=== PATIENT | male | born 1935 | race Caucasian/White ===

== ENCOUNTER 2017-05-02 16:32 | Inpatient (IN) | payer MEDICARE, BC ==
[2017-05-02] MEDS ORDERED: Sodium Chloride 0.9% 10 ML Syringe FLUSH PRN (17:03)
[2017-05-02] MEDS ORDERED: Sodium Chloride 0.9% 250 ML IV ONE ×2 (17:32→18:46)
--- NOTE | 2017-05-02 17:42 | EDM.PDOC ---
ED HPI GENERAL MEDICAL PROBLEM - General Chief Complaint: Neurological Problem Stated Complaint: Weakness Time Seen by Provider: 05/02/17 16:40 Source of Information: Reports: Patient, RN Notes Reviewed History Limitations: Reports: No Limitations - History of Present Illness INITIAL COMMENTS - FREE TEXT/NARRATIVE: 82 year old male presents to the ED via [facility] with complaints of generalized weakness. He lives with his son and mzfgpxro-dl-rpw who care for him. He has a history of prostate cancer with mets to the bones and is on oral chemotherapy. The svrbegof-sx-vxv says that the patient had a sudden decline over the past 24 hours. Yesterday he was ambulating with his walker with minimal assistance. This morning, he was very weak and had a minor fall onto his buttocks this morning when up to the bathroom. The patient essentially slowly fell and sat on his buttocks. He's had no complaints of pain since the fall. He was able to bear weight after the fall. Today he is unable to ambulate due to significant weakness. The hubfppyf-ss-nzx says that he had no facial droop or speech changes. He had no unilateral weakness to his extremities. He has been eating well the past few days. No fever, chills, sweats, cough, chest pain, shortness of breath, abdominal pain, nausea, vomiting. He does have intermittent diarrhea which has been going on for quite some time and seems to be related to certain foods. - Related Data Allergies Allergy/AdvReac Type Severity Reaction Status Date / Time No Known Allergies Allergy Verified 09/16/16 23:13 Home Meds: Home Meds Calcium Carbonate/Vitamin D3 [Calcium 600 + D Tablet] 1,250 mg PO TID 05/07/15 [ History] Cholecalciferol (Vitamin D3) [Vitamin D3] 5,000 unit PO DAILY 05/07/15 [History] Fluticasone/Vilanterol [Breo Ellipta 200-25 Mcg INH] 1 puff INH DAILY 05/07/15 [ History] Tamsulosin HCl [Flomax] 0.4 mg PO DAILY #30 cap.er.24h 05/09/15 [Rx] Albuterol Sulfate 2.5 mg INH TID 06/09/16 [History] Enzalutamide [Xtandi] 160 mg PO QID 09/16/16 [History] Warfarin [Coumadin] 5 mg PO DAILY 09/16/16 [History] Furosemide [Lasix] 20 mg PO DAILY #30 tablet 09/20/16 [Rx] Albuterol Sulfate [Proair Hfa] 8.5 gm IH Q4H 05/02/17 [History] Digoxin [Lanoxin] 0.125 mcg PO DAILY@0900 05/02/17 [History] Mirtazapine 7.5 mg PO BEDTIME 05/02/17 [History] oxyCODONE 5 mg PO Q4H PRN 05/02/17 [History] Past Medical History HEENT History: Reports: Hard of Hearing, Impaired Vision Other HEENT History: wears eyeglasses and hearing aids Cardiovascular History: Reports: Afib, Automatic Implantable Cardioverter Defibrillators, Heart Failure, Hypertension Other Cardiovascular History: AICD Respiratory History: Reports: COPD Other Respiratory History: states had part of R lung removed due to cancer in 2005. Other Genitourinary History: recently Dx'd with prostate CA Immunologic History: Reports: Other (See Below) Other Immunologic History: on CHEMOTHERAPY Oncologic (Cancer) History: Reports: Bone, Lung, Prostate Other Oncologic History: lung cancer s/p lobectomy 2005. and new lung cancer also stage 1, just started radiation radiation. 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 - Infectious Disease History Infectious Disease History: Reports: Chicken Pox - Past Surgical History GI Surgical History: Reports: None Social & Family History - Family History Family Medical History: Noncontributory - Tobacco Use Smoking Status *Q: Former Smoker Years of Tobacco use: 40 Packs/Tins Daily: 0.1 Used Tobacco, but Quit: Yes Month Tobacco Last Used: 20 Second Hand Smoke Exposure: No - Caffeine Use Caffeine Use: Reports: None Other Caffeine Use: every morning - Alcohol Use Days Per Week of Alcohol Use: 5 Number of Drinks Per Day: 1 Total Drinks Per Week: 5 - Recreational Drug Use Recreational Drug Use: No - Living Situation & Occupation Living situation: Reports: , Alone ED ROS GENERAL - Review of Systems Review Of Systems: See Below Constitutional: Reports: Malaise, Fatigue. Denies: Fever, Chills Respiratory: Reports: No Symptoms. Denies: Shortness of Breath, Wheezing, Cough Cardiovascular: Reports: No Symptoms. Denies: Chest Pain, Edema, Lightheadedness GI/Abdominal: Reports: Diarrhea. Denies: Abdominal Pain, Nausea, Vomiting Neurological: Reports: Difficulty Walking, Weakness. Denies: Headache, Numbness , Tingling ED EXAM, NEURO - Physical Exam Exam: See Below Exam Limited By: No Limitations General Appearance: Alert, No Apparent Distress, Thin, Cachetic Eye Exam: Bilateral Eye: EOMI, PERRL Throat/Mouth: Normal Inspection, Normal Oropharynx Respiratory/Chest: No Respiratory Distress, Lungs Clear, Decreased Breath Sounds (left side ) Cardiovascular: Normal Peripheral Pulses, Regular Rate, Rhythm, No Murmur GI/Abdominal: Normal Bowel Sounds, Soft, Non-Tender, No Distention Neurological: Alert, Normal Mood/Affect, Normal Dorsiflexion, Normal Plantar Flexion, Normal Gait, Difficulty Walking, Other (no focal neuro deficit. weakness to upper and lower extremities are equal bilaterally. ) Extremities: Normal Inspection, Normal Range of Motion, No Pedal Edema Skin Exam: Warm, Dry, Intact Course - Vital Signs Last Recorded V/S: Last Vital Signs Temp 98 F 05/02/17 16:37 Pulse 100 05/02/17 16:37 Resp 15 05/02/17 18:30 BP 95/63 05/02/17 18:30 Pulse Ox 98 05/02/17 18:30 - Orders/Labs/Meds Orders: Active Orders 24 hr Category Date Time Status Insert Urinary Catheter [OM.PC] Q24H Care 05/02/17 18:15 Ordered Peripheral IV Care [RC] . DIRECTED Care 05/02/17 17:04 Active Urinary Catheter Assessment [RC] ASDIRECTED Care 05/02/17 18:09 Active CXR [Chest 1V Frontal] [CR] Stat Exams 05/02/17 17:37 Taken Sodium Chloride 0.9% [Saline Flush] Med 05/02/17 17:03 Active 10 ml FLUSH ASDIRECTED PRN Peripheral IV Insertion Adult [OM.PC] Stat Oth 05/02/17 17:04 Ordered Medication Orders Sodium Chloride (Saline Flush) 10 ml FLUSH ASDIRECTED PRN PRN Reason: Keep Vein Open Last Admin: 05/02/17 17:57 Dose: 10 ml Labs: Laboratory Tests 05/02/17 05/02/17 05/02/17 Range/Units 17:30 17:30 18:20 WBC 2.22 L* (4.23-9.07) K/mm3 RBC 2.89 L (4.63-6.08) M/mm3 Hgb 9.4 L (13.7-17.5) gm/L Hct 27.9 L (40.1-51.0) % MCV 96.5 H (79.0-92.2) fl MCH 32.5 H (25.7-32.2) pg MCHC 33.7 (32.2-35.5) g/dl RDW Std Deviation 58.5 H (35.1-43.9) fL Plt Count 50 L (163-337) K/mm3 MPV 9.2 L (9.4-12.3) fl Neut % (Auto) 65.1 (34.0-67.9) % Lymph % (Auto) 19.4 L (21.8-53.1) % [place] % (Auto) 10.4 (5.3-12.2) % Eos % (Auto) 2.3 (0.8-7.0) Baso % (Auto) 1.4 H (0.1-1.2) % Neut # (Auto) 1.45 L (1.78-5.38) K/mm3 Lymph # (Auto) 0.43 L (1.32-3.57) K/mm3 [place] # (Auto) 0.23 L (0.30-0.82) K/mm3 Eos # (Auto) 0.05 (0.04-0.54) K/mm3 Baso # (Auto) 0.03 (0.01-0.08) K/mm3 Manual Slide Review Abnormal smear Sodium 140 (136-145) mEq/L Potassium 3.9 (3.5-5.1) mEq/L Chloride 108 H (98-107) mEq/L Carbon Dioxide 26 (21-32) mEq/L Anion Gap 9.9 (5-15) BUN 42 H (7-18) mg/dL Creatinine 1.5 H (0.7-1.3) mg/dL Est Cr Clr Drug Dosing 27.28 mL/min Estimated GFR (MDRD) 45 (>60) mL/min BUN/Creatinine Ratio 28.0 H (14-18) Glucose 94 (83-115) mg/dL Calcium 8.3 L (8.5-10.1) mg/dL Total Bilirubin 0.6 (0.2-1.0) mg/dL AST 132 H (15-37) U/L ALT 16 (16-63) U/L Alkaline Phosphatase 132 H (46-116) U/L C-Reactive Protein 7.6 H* (<1.0) mg/dL Total Protein 5.6 L (6.4-8.2) g/dl Albumin 2.2 L (3.4-5.0) g/dl Globulin 3.4 gm/dL Albumin/Globulin Ratio 0.7 L (1-2) Urine Color Yellow (Yellow) Urine Appearance Clear (Clear) Urine pH 5.5 (5.0-8.0) Ur Specific [place] 1.020 (1.005-1.030) Urine Protein Negative (Negative) Urine Glucose (UA) Negative (Negative) Urine Ketones Negative (Negative) Urine Occult Blood Negative (Negative) Urine Nitrite Negative (Negative) Urine Bilirubin Negative (Negative) Urine Urobilinogen 0.2 (0.2-1.0) Ur Leukocyte Esterase Negative (Negative) Urine RBC 0-5 (0-5) /hpf Urine WBC 0-5 (0-5) /hpf Ur Epithelial Cells 0-5 (0-5) /hpf Urine Bacteria Few (FEW) /hpf Urine Mucus Moderate H (FEW) /hpf Meds: Medications Generic Name Dose Route Start Last Admin Trade Name Freq PRN Reason Stop Dose Admin Sodium Chloride 10 ml 05/02/17 17:03 05/02/17 17:57 Saline Flush FLUSH 10 ml ASDIRECTED PRN Administration Keep Vein Open Discontinued Medications Generic Name Dose Route Start Last Admin Trade Name Fredipti PRN Reason Stop Dose Admin Sodium Chloride 250 mls @ 999 mls/hr 05/02/17 17:32 05/02/17 17:57 Normal Saline IV 05/02/17 17:47 999 mls/hr ONETIME ONE Administration Sodium Chloride 250 mls @ 999 mls/hr 05/02/17 18:46 05/02/17 18:48 Normal Saline IV 05/02/17 19:01 999 mls/hr ONETIME ONE Administration - Re-Assessments/Exams Free Text/Narrative Re-Assessment/Exam: Patient had no focal neurologic deficit on exam. We discussed risk versus benefit of CT. With shared decision making we decided not to proceed with head CT. Oxygen was titrated around 4-6 lpm to maintain oxygen saturation above 90%. He was hypotensive in the 80s/40s upon arrival. This improved with two 250ml NS boluses. CBC reveals low WBC and platelets which is to be suspected as he is on chemotherapy. CMP reveals Na 140, K 3.9, BUN 42, creatinine 1.5, AST 132, ALT 16 , alk phos 132. CRP is elevated at 7.6. UA obtained via straight cath and is negative for infection. Chest x-ray was reviewed with Dr. Li. There is an area of consolidation in the right upper lobe, it's difficult to determine if this is related to mets or an infiltrate. No pneumothorax appreciated. We considered ordered CT of chest and consulted Dr. Salinas who also reviewed the chest x-ray. He compared this with a previous chest CT and said there is no change from previous testing. Therefore, CT was no ordered. 05/02/17 19:[address] Michael. He will come see the patient. 05/02/17 20:45 Dr. Michael spoke to the patient and his iuuaorde-hd-bjh in depth about options. The family talked over various options and would prefer that he be admitted until they can get better equipped to care for him at home. They are planning to obtain a hospital type bed and other supplies to help care for him at home as his condition declines. The patient adamantly does not want to go to the half-way. Family is aware of this and plan to care for him at home. They have home health and have the option of hospice if they decide. The patient will be admitted for failure to thrive. Plan will be to get social work and case management involved in the morning to help coordinate home care. I did ask the patient about his code status and at this time he wishes to be a DNR/DNI. Departure - Departure Time of Disposition: 20:58 Disposition: Admitted As Inpatient 66 Condition: Poor Clinical Impression: Failure to thrive, Prostate cancer metastatic to bone - Discharge Information Forms: ED Department Discharge - My Orders Last 24 Hours: My Active Orders 05/02/17 17:03 Sodium Chloride 0.9% [Saline Flush] 10 ml FLUSH ASDIRECTED PRN 05/02/17 17:04 Peripheral IV Care [RC] . DIRECTED Peripheral IV Insertion Adult [OM.PC] Stat 05/02/17 17:37 CXR [Chest 1V Frontal] [CR] Stat 05/02/17 18:09 Urinary Catheter Assessment [RC] ASDIRECTED 05/02/17 18:15 Insert Urinary Catheter [OM.PC] Q24H - Assessment/Plan Last 24 Hours: My Active Orders 05/02/17 17:03 Sodium Chloride 0.9% [Saline Flush] 10 ml FLUSH ASDIRECTED PRN 05/02/17 17:04 Peripheral IV Care [RC] . DIRECTED Peripheral IV Insertion Adult [OM.PC] Stat 05/02/17 17:37 CXR [Chest 1V Frontal] [CR] Stat 05/02/17 18:09 Urinary Catheter Assessment [RC] ASDIRECTED 05/02/17 18:15 Insert Urinary Catheter [OM.PC] Q24H
[2017-05-02] MEDS ORDERED: Temazepam 7.5 MG Cap PO PRN (21:51)
[2017-05-02] MEDS ORDERED: Bisacodyl 5 MG Tab PO PRN (21:51)
[2017-05-02] MEDS ORDERED: Albuterol/Ipratropium 3.0-0.5 MG/3 ML Neb Soln NEB PRN (21:51)
[2017-05-02] MEDS ORDERED: Ondansetron 4 MG/2 ML SDV IV PRN (21:51)
[2017-05-02] MEDS ORDERED: Promethazine 12.5 MG in Sodium Chloride 0.9% 50 ML IV PRN (21:51)
[2017-05-02] MEDS ORDERED: HYDROmorphone 0.5 MG/0.5 ML Syringe IVPUSH PRN (21:51)
[2017-05-02] MEDS ORDERED: LORazepam 2 MG/ML MDV IV PRN (21:51)
[2017-05-02] MEDS ORDERED: Docusate Sodium 100 MG Cap PO PRN (21:51)
[2017-05-02] MEDS ORDERED: Acetaminophen 325 MG Tab PO PRN (21:51)
[2017-05-02] MEDS ORDERED: Acetaminophen/HYDROcodone 325-5 MG Tab PO PRN (21:51)
[2017-05-02] MEDS ORDERED: Polyethylene Glycol 3350 Powder 17 GM Packet PO PRN (21:51)
--- NOTE | 2017-05-02 21:51 | PCM.HP ---
H&P History of Present Illness - General Date of Service: 05/02/17 Admit Problem/Dx: Failure To Thrive Source of Information: Patient, Family, Old Records, Provider, RN Notes Reviewed History Limitations: Reports: Physical Impairment - History of Present Illness Initial Comments - Free Text/Narative: This is an 82 year old elderly white male with past medical hx/o Impaired Hearing and Vision, HTN, A-Fib on Digoxi, HR is controlled, Heart Failure with Reduced EF of 15-20% 09/17/2016, Cardiomyopathy S/p AICD Placement, COPD, Valvular Heart Disease, Hx/o Lung CA S/p Right Lung Lobectomy in 2005 and now New Lung CA S/p Radiation, and Stage IV Prostate CA with Metastatic Bone Disease who Savage since her via ambulance from [place] with complains of progressive generalized weakness associated with poor oral intake. Patient is usually able to ambulate on his own using a walker with minimal assistance. However this morning he was very weak and had fallen when he went up to the bathroom. The fall was nontraumatic and the patient landed on his buttocks. He reports no pain after the fall. However he has not been able to ambulate due to severe weakness. Patient reports no neurologic deficits. Patient denies any systemic infections. However he reports some diarrhea on and off that has been going on quite some time. According to his jrvbjiqx-jj-qoh who was present at bedside, patient is afraid to eat due to constipation. Patient carries a history of lung cancer status post right lung lobectomy in 2005 and it appears he may have developed new lung cancer unclear which side of his lungs at this time. He had undergone radiation therapy and he is currently on oral chemotherapy. He also carries a history of stage IV prostate cancer with metastatic bone disease. His initial workup in emergency department shows a CBC remarkable for WBC of 2.22, RBC of 2.89, hemoglobin of 9.4, hematocrit of 27.9, MCV of 96.5, MCH of 32.5, platelet 50, lymphocyte of 19.4%, and neutrophils count of 1.45. PT is 19.7 and INR is 1.74. His chemistry is significant for chloride of 108, BUN of 42, creatinine of 1.5, calcium 8.2, AST of 132, alkaline phosphatase of 132, CRP of 7.6, total protein of 5.6, and albumin of 2.2. His UA is negative for UTI but specific gravity shows 1.020. Chest x-ray shows no acute abnormal findings. Patient is being admitted for failure to thrive. He is DNR/DNI. - Related Data Allergies/Adverse Reactions: Allergies Allergy/AdvReac Type Severity Reaction Status Date / Time No Known Allergies Allergy Verified 09/16/16 23:13 Home Medications: Home Meds Calcium Carbonate/Vitamin D3 [Calcium 600 + D Tablet] 1 tab PO TID 05/07/15 [ History] Cholecalciferol (Vitamin D3) [Vitamin D3] 1,000 unit PO DAILY 05/07/15 [History] Fluticasone/Vilanterol [Breo Ellipta 200-25 Mcg INH] 1 puff INH DAILY 05/07/15 [ History] Tamsulosin HCl [Flomax] 0.4 mg PO DAILY #30 cap.er.24h 05/09/15 [Rx] Albuterol Sulfate 2.5 mg INH TID 06/09/16 [History] Enzalutamide [Xtandi] 160 mg PO ACLUNCH 09/16/16 [History] Warfarin [Coumadin] 5 mg PO PCDINNER 09/16/16 [History] Furosemide [Lasix] 20 mg PO DAILY #30 tablet 09/20/16 [Rx] Albuterol Sulfate [Proair Hfa] 8.5 gm IH Q4H PRN 05/02/17 [History] Digoxin [Lanoxin] 125 mcg PO DAILY@0900 05/02/17 [History] oxyCODONE 5 mg PO Q4H PRN 05/02/17 [History] Dronabinol [Marinol] 2.5 mg PO TIDAC #90 cap 05/03/17 [Rx] Mirtazapine 15 mg PO BEDTIME PRN #30 05/03/17 [Rx] Past Medical History HEENT History: Reports: Hard of Hearing, Impaired Vision Other HEENT History: wears eyeglasses and hearing aids Cardiovascular History: Reports: Afib, Automatic Implantable Cardioverter Defibrillators, Heart Failure, Hypertension Other Cardiovascular History: AICD Respiratory History: Reports: COPD Other Respiratory History: states had part of R lung removed due to cancer in 2005. Other Genitourinary History: recently Dx'd with prostate CA Immunologic History: Reports: Other (See Below) Other Immunologic History: on CHEMOTHERAPY Oncologic (Cancer) History: Reports: Bone, Lung, Prostate Other Oncologic History: lung cancer s/p lobectomy 2006. and new lung cancer also stage 1, just started radiation radiation. 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 - Infectious Disease History Infectious Disease History: Reports: Chicken Pox - Past Surgical History GI Surgical History: Reports: None Social & Family History - Family History Family Medical History: Noncontributory - Tobacco Use Smoking Status *Q: Former Smoker Years of Tobacco use: 40 Packs/Tins Daily: 0.1 Used Tobacco, but Quit: Yes Month Tobacco Last Used: 20 Second Hand Smoke Exposure: No - Caffeine Use Caffeine Use: Reports: None Other Caffeine Use: every morning - Alcohol Use Days Per Week of Alcohol Use: 5 Number of Drinks Per Day: 1 Total Drinks Per Week: 5 - Recreational Drug Use Recreational Drug Use: No - Living Situation & Occupation Living situation: Reports: , Alone H&P Review of Systems - Review of Systems: Review Of Systems: See Below General: Reports: Malaise, Weakness, Fatigue. Denies: Fever, Chills HEENT: Reports: No Symptoms Pulmonary: Denies: Shortness of Breath, Pleuritic Chest Pain Cardiovascular: Denies: Chest Pain, Palpitations, Dyspnea on Exertion, Edema, Lightheadedness Gastrointestinal: Reports: Diarrhea, Decreased Appetite. Denies: Abdominal Pain , Difficulty Swallowing, Nausea, Vomiting Genitourinary: Reports: No Symptoms Musculoskeletal: Reports: No Symptoms Skin: Denies: Cyanosis, Rash, Erythema Psychiatric: Denies: Depression, Anxiety, Hallucinations, Suicidal Ideation, Homicidal Ideation Neurological: Reports: Difficulty Walking, Weakness (Generalized), Gait Disturbance. Denies: Confusion Hematologic/Lymphatic: Reports: No Symptoms Immunologic: Reports: No Symptoms Exam - Exam Exam: See Below - Vital Signs Vital Signs: Last Vital Signs Temp 37.3 C 05/02/17 21:27 Pulse 91 05/02/17 21:27 Resp 20 05/02/17 21:27 BP 87/53 L 05/02/17 21:27 Pulse Ox 94 L 05/02/17 21:27 Weight: 50.077 kg - Exam General: Alert, Oriented, Other (Emaciated). No: Mild Distress HEENT: Conjunctiva Clear, EACs Clear, EOMI, Hearing Intact, Nares Patent, Normal Nasal Septum, Posterior Pharynx Clear, Pupils Equal, Pupils Reactive, Other (Eye lids are sunken). No: Mucosa Moist & [place] Neck: Supple, Trachea Midline, +2 Carotid Pulse wo Bruit, Full Range of Motion Lungs: Normal Respiratory Effort, Decreased Breath Sounds, Other (AICD on anterior chest) Cardiovascular: Irregular Rhythm, Systolic Murmur GI/Abdominal Exam: Normal Bowel Sounds, Soft, Non-Tender, No Organomegaly, No Distention, No Abnormal Bruit, No Mass (Male) Exam: Deferred Back Exam: Normal Inspection, Decreased Range of Motion Extremities: Normal Inspection, Normal Range of Motion, Non-Tender, No Pedal Edema, Normal Capillary Refill Peripheral Pulses: 2+: Dorsalis Pedis (L), Dorsalis Pedis (R) Skin: Warm, Dry, Intact Neuro Extensive - Mental Status: Oriented x3, Normal Cognition, Memory Intact, Slow Response to Commands Neuro Extensive - Motor, Sensory, Reflexes: CN II-XII Intact (limited due to weakness), Abnormal Gait Psychiatric: Alert, Normal Mood. No: Normal Affect (jen), Suicidal Ideation, Homicidal Ideation, Hallucinations, Withdrawal Symptoms - Patient Data Result Diagrams: 05/03/17 05:56 05/03/17 05:56 *Q Meaningful Use (ADM) - VTE *Q VTE Criteria *Q: - Stroke *Q Stroke Criteria *Q: - AMI *Q AMI Criteria *Q: Problem List Initiated/Reviewed/Updated: Yes Orders Last 24hrs: Medication Orders Sodium Chloride (Saline Flush) 10 ml FLUSH ASDIRECTED PRN PRN Reason: Keep Vein Open Last Admin: 05/02/17 17:57 Dose: 10 ml Assessment/Plan Comment:: Assessment/Plan: Acute: Failure To Thrive - Severe Emaciated with BMI 17 - Has Stage IV Prostate Cancer - Has not been eating or drinking - He lives with family in [place] - Increased Remeron to 15 mg po QHS - Marinol 2.5 mg po TID before meals Generalized Weakness - 2/2 Diffuse Muscle Atrophy/Wasting, Pancytopenia, Active Malignancy and Also Poor Oral Intake - Dietary consult to optimize nutritional intake - TFT and Vit D Level - PT/OT - Fall Precautions Protein Wasting State - Poor intake and Stage IV Prostate CA - Albumin is 2.2 - Dietary consult to improve protein level Hypotension - 2/2 Volume Depletion and Poor fluid intake - Currently hydration; already received - Hold BP Meds Dehydration - Urine spec gravity is 1.020 (Moderate) - Cr is 1.5 with GFR of 45 - Currently IV Hydration Lung CA Stage 1 - Just started Radiation Therapy - On oral chemotherapy Subtherapeutic INR - INR 1.74 - Resume Warfarin home dose - Augment with Lovenox Sub Q Thrombocytopenia - Platelet of 50K - Will monitor End of Life Care - Meets Hospice/Pallative Care - SW/CM consult for d/c planning Chronic: Impaired Hearing and Vision HTN A-Fib on Digoxin, HR is controlled Heart Failure with Reduced EF of 15-20% 09/17/2016 Cardiomyopathy S/p AICD Placement COPD Valvular Heart Disease Pancytopenia 2/2 Malignancy and Chemotherapy Drugs Hx/o Lung CA S/p Right Lung Lobectomy in 2005 Stage IV Prostate CA with Metastatic Bone Disease Plan: Admit to the floor w/o Tele Resume Home Meds Supportive Care Routine AM Labs DVT PPx: Already on warfarin Additional orders as above Code Status: DNR/DNI Met up with patient and cvopqriy-ek-hdz in the emergency department. Patient understood he is declining progressively. However he doesn't want to go to a snf. His progressive decline has been discussed with his primary care doctor at the clinic. He was given prescription orders for medical bed, chairs, and bedside commode for home use. Unfortunately, his current insurance would not cover these medical supplies because he hasn't been formally evaluated physically by his primary care according to his chzwumae-or-qso. Hospice home care has been offered to the patient but he is not receptive at this point. Daughter in law wants to bring him home, possibly in the morning.
[2017-05-02] MEDS ORDERED: Mirtazapine 15 MG Tab PO PRN (21:54)
[2017-05-02] MEDS ORDERED: oxyCODONE 5 MG Tab PO PRN (21:54)
[2017-05-02] MEDS ORDERED: hydrALAZINE 20 MG/ML SDV IVPUSH PRN (21:57)
[2017-05-02] MEDS ORDERED: LORazepam 2 MG/ML MDV IVPUSH PRN (21:57)
[2017-05-02] MEDS ORDERED: Multivitamins,Therapeutic Tab PO ONE (21:58)
[2017-05-02] MEDS ORDERED: Thiamine 200 MG in Sodium Chloride 0.9% 100 ML IV ONE (21:59)
[2017-05-02] MEDS ORDERED: Dextrose 5%-0.9% NaCl 1,000 ML IV SCH (23:00)
[2017-05-03] MEDS: Albuterol 0.083% 2.5 MG/3 ML Neb Soln INH SCH ×3 (06:33→13:57)
--- NOTE | 2017-05-03 06:55 | CR ---
Chest: Frontal view of the chest was obtained. Comparison: Previous chest CT of 10/15/16 and chest x-ray of 09/16/16. Parenchymal density is noted within the right mid lung believed to be present on chest x-ray of 09/16/16. Lucency identified within the left upper chest correlating to large bulla on chest CT. Chronic change is noted within the left mid and lower lung. Heart size is mildly enlarged. AICD is present. Diffuse osteosclerotic bones are present. Impression: 1. 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 2. Parenchymal density within the right mid lung which appears stable from prior chest x-ray. 3. Other chronic findings within the chest as described above. Nothing acute is definitely appreciated. Diagnostic code #9
[2017-05-03] MEDS ORDERED: Dronabinol 2.5 MG Cap PO SCH (07:00)
[2017-05-03] MEDS: Dronabinol 2.5 MG Cap PO SCH ×2 (08:49→11:24)
[2017-05-03] MEDS ORDERED: Cholecalciferol (Vitamin D3) 1,000 Unit Tab PO SCH (09:00)
[2017-05-03] MEDS ORDERED: Non-Formulary Medication 1 Each (Fluticasone/Vilanterol 1 PUFF) INH SCH (09:00)
[2017-05-03] MEDS ORDERED: Calcium Carbonate/Vitamin D3 1500 MG-200 Units Tab PO SCH (09:00)
[2017-05-03] MEDS ORDERED: Tamsulosin 0.4 MG Cap.ER PO SCH (09:00)
--- NOTE | 2017-05-03 09:58 | PCM.PN ---
- General Info Date of Service: 05/03/17 Admission Dx/Problem (Free Text): Failure To Thrive Subjective Update: Follow Up Functional Status: Reports: Pain Controlled, Urinating. Denies: Ambulating - Review of Systems General: Reports: Weakness, Fatigue. Denies: Fever, Malaise, Chills HEENT: Reports: No Symptoms Pulmonary: Denies: Shortness of Breath Cardiovascular: Denies: Chest Pain Gastrointestinal: Denies: Abdominal Pain, Nausea, Vomiting Genitourinary: Reports: No Symptoms Musculoskeletal: Reports: No Symptoms Skin: Reports: No Symptoms Neurological: Reports: Pre-Existing Deficit, Difficulty Walking, Weakness, Gait Disturbance. Denies: Confusion Psychiatric: Denies: Depression, Anxiety, Agitation, Hallucinations Systems Review Comment:: No significant overnight or acute issues. He is about the same as last night, still weak and tired. He has no new complaints. - Patient Data Vitals - Most Recent: Last Vital Signs Temp 36.9 C 05/03/17 08:00 Pulse 86 05/03/17 08:00 Resp 16 05/03/17 08:00 BP 95/60 05/03/17 08:00 Pulse Ox 94 L 05/03/17 08:00 Weight - Most Recent: 50.077 kg I&O - Last 24 Hours: Intake & Output 05/02/17 05/03/17 05/03/17 22:59 06:59 14:59 Intake Total 524 Output Total 200 Balance 324 Lab Results Last 24 Hours: Laboratory Results - last 24 hr 05/03/17 05/03/17 05/03/17 Range/Units 05:56 05:56 05:56 WBC 2.00 L* (4.23-9.07) K/mm3 RBC 2.95 L (4.63-6.08) M/mm3 Hgb 9.5 L (13.7-17.5) gm/L Hct 28.8 L (40.1-51.0) % MCV 97.6 H (79.0-92.2) fl MCH 32.2 (25.7-32.2) pg MCHC 33.0 (32.2-35.5) g/dl RDW Std Deviation 57.9 H (35.1-43.9) fL Plt Count 54 L (163-337) K/mm3 MPV 9.8 (9.4-12.3) fl Neut % (Auto) 65.0 (34.0-67.9) % Lymph % (Auto) 20.0 L (21.8-53.1) % [place] % (Auto) 11.5 (5.3-12.2) % Eos % (Auto) 2.0 (0.8-7.0) Baso % (Auto) 0.5 (0.1-1.2) % Neut # (Auto) 1.30 L (1.78-5.38) K/mm3 Lymph # (Auto) 0.40 L (1.32-3.57) K/mm3 [place] # (Auto) 0.23 L (0.30-0.82) K/mm3 Eos # (Auto) 0.04 (0.04-0.54) K/mm3 Baso # (Auto) 0.01 (0.01-0.08) K/mm3 Manual Slide Review Abnormal smear PT 17.5 H (8.0-13.0) SECONDS INR 1.56 Sodium 140 (136-145) mEq/L Potassium 3.9 (3.5-5.1) mEq/L Chloride 108 H (98-107) mEq/L Carbon Dioxide 26 (21-32) mEq/L Anion Gap 9.9 (5-15) BUN 41 H (7-18) mg/dL Creatinine 1.4 H (0.7-1.3) mg/dL Est Cr Clr Drug Dosing 28.81 mL/min Estimated GFR (MDRD) 49 (>60) mL/min BUN/Creatinine Ratio 29.3 H (14-18) Glucose 81 L (83-115) mg/dL Calcium 7.9 L (8.5-10.1) mg/dL Magnesium 2.4 (1.8-2.4) mg/dl Free T4 0.99 (0.76-1.46) ng/dL TSH 3rd Generation 5.266 H (0.358-3.74) uIU/mL Med Orders - Current: Current Medications Acetaminophen (Tylenol) 650 mg PO Q4H PRN PRN Reason: Pain (Mild 1-3)/fever Hydrocodone Bitart/Acetaminophen ([place] 325-5 Mg) 1 tab PO Q4H PRN PRN Reason: Pain (moderate 4-6) Albuterol (Proventil Neb Soln) 2.5 mg INH TIDRT [facility] Last Admin: 05/03/17 07:38 Dose: 2.5 mg Albuterol/Ipratropium (Duoneb 3.0-0.5 Mg/3 Ml) 3 ml NEB Q4HRRT PRN PRN Reason: Shortness Of Breath/wheezing Bisacodyl (Dulcolax) 5 mg PO DAILY PRN PRN Reason: Constipation Calcium Carbonate (Calcium Carbonate/Vitamin D 1500 Mg-200 Unit) 1 tab PO TID [facility] Last Admin: 05/03/17 08:49 Dose: 1 tab Cholecalciferol (Vitamin D3) 1,000 units PO DAILY [facility] Last Admin: 05/03/17 08:49 Dose: 1,000 units Digoxin (Lanoxin) 125 mcg PO DAILY@1200 RERE Docusate Sodium (Colace) 100 mg PO BID PRN PRN Reason: Constipation Dronabinol (Marinol) 2.5 mg PO TIDAC [facility] Last Admin: 05/03/17 08:49 Dose: 2.5 mg Hydralazine HCl (Apresoline) 10 mg IVPUSH Q4H PRN PRN Reason: Hypertension Hydromorphone HCl (Dilaudid) 0.25 mg IVPUSH Q2H PRN PRN Reason: Pain (severe 7-10) Promethazine HCl 12.5 mg/ (Sodium Chloride) 50.5 mls @ 100 mls/hr IV Q6H PRN PRN Reason: Nausea/Vomiting Dextrose/Sodium Chloride (Dextrose 5%-Normal Saline) 1,000 mls @ 45 mls/hr IV ASDIRECTED [facility] Last Admin: 05/03/17 00:38 Dose: 45 mls/hr Lorazepam (Ativan) 0.25 mg IV Q6H PRN PRN Reason: Anxiety Lorazepam (Ativan) 2 mg IVPUSH Q4H PRN PRN Reason: Seizures Magnesium Sulfate (Pharmacy To Dose - Magnesium Replacement) 1 dose .XX ASDIRECTED [facility] Mirtazapine (Remeron) 15 mg PO BEDTIME PRN PRN Reason: Insomnia Multivitamins (Thera) 1 each PO BEDTIME [facility] Ondansetron HCl (Zofran) 4 mg IV Q6H PRN PRN Reason: Nausea/Vomiting Oxycodone HCl (Oxycodone) 5 mg PO Q4H PRN PRN Reason: Pain Enzalutamide [Xtandi (] 40 Mg Capsule) 0 each PO ACLUNCH [facility] Polyethylene Glycol (Miralax) 17 gm PO DAILY PRN PRN Reason: Constipation Potassium Chloride (Pharmacy To Dose - Potassium Replacement) 1 dose .XX ASDIRECTED [facility] Senna/Docusate Sodium (Senna Plus) 1 tab PO BID PRN PRN Reason: Constipation Sodium Chloride (Saline Flush) 10 ml FLUSH ASDIRECTED PRN PRN Reason: Keep Vein Open Last Admin: 05/02/17 17:57 Dose: 10 ml Tamsulosin HCl (Flomax) 0.4 mg PO DAILY [facility] Last Admin: 05/03/17 08:49 Dose: 0.4 mg Temazepam (Restoril) 7.5 mg PO BEDTIME PRN PRN Reason: Sleep Last Admin: 05/03/17 08:49 Dose: 7.5 mg Thiamine HCl (Vitamin B-1) 100 mg PO BEDTIME [facility] Warfarin Sodium (Coumadin) 5 mg PO DAILY@1800 [facility] Warfarin Sodium (Pharmacy To Dose - Warfarin) 1 dose .XX ASDIRECTED [facility] Discontinued Medications Dronabinol (Marinol) 2.5 mg PO TID [facility] Sodium Chloride (Normal Saline) 250 mls @ 999 mls/hr IV ONETIME ONE Stop: 05/02/17 17:47 Last Admin: 05/02/17 17:57 Dose: 999 mls/hr Sodium Chloride (Normal Saline) 250 mls @ 999 mls/hr IV ONETIME ONE Stop: 05/02/17 19:01 Last Admin: 05/02/17 18:48 Dose: 999 mls/hr Thiamine HCl 200 mg/ Sodium (Chloride) 102 mls @ 50 mls/hr IV ONETIME ONE Stop: 05/03/17 00:01 Last Admin: 05/03/17 00:38 Dose: 50 mls/hr Multivitamins (Thera) 1 each PO DAILY ONE Stop: 05/02/17 21:59 Last Admin: 05/03/17 00:39 Dose: 1 each Non-Formulary Medication (Fluticasone/Vilanterol) 1 puff INH DAILY [facility] - My Orders Last 24 Hours: My Active Orders 05/02/17 17:30 VITAMIN D 25-HYROXY (D2, D3) [REF] Stat 05/02/17 21:51 Height and Weight [RC] 04 Intake and Output [RC] 04,16 Oxygen Therapy [RC] PRN Pulse Oximetry [RC] PRN Up With Assistance [RC] QSHIFT Up ad [place]re[place] [RC] QSHIFT VTE/DVT Education [RC] PER UNIT ROUTINE Vital Signs [RC] Q4HR Acetaminophen [Tylenol] 650 mg PO Q4H PRN Acetaminophen/HYDROcodone [[place] 325-5 MG] 1 tab PO Q4H PRN Albuterol/Ipratropium [DuoNeb 3.0-0.5 MG/3 ML] 3 ml NEB Q4HRRT PRN Bisacodyl [Dulcolax] 5 mg PO DAILY PRN Docusate Sodium [Colace] 100 mg PO BID PRN Docusate Sodium/Sennosides [Senna Plus] 1 tab PO BID PRN HYDROmorphone [Dilaudid] 0.25 mg IVPUSH Q2H PRN LORazepam [Ativan] 0.25 mg IV Q6H PRN Ondansetron [Zofran] 4 mg IV Q6H PRN Polyethylene Glycol 3350 [MiraLAX] 17 gm PO DAILY PRN Promethazine [Phenergan] 12.5 mg Sodium Chloride 0.9% [Normal Saline] 50 ml IV Q6H Temazepam [Restoril] 7.5 mg PO BEDTIME PRN Sequential Compression Device [OM.PC] Per Unit Routine Resuscitation Status Routine 05/02/17 21:52 Antiembolic Devices [RC] BID RT Aerosol Therapy [RC] ASDIRECTED 05/02/17 21:53 Consult to Case Management [CONS] Routine Consult to House Calls Nurse [CONS] Routine Consult to Spiritual Care [CONS] Routine OT Evaluation and Treatment [CONS] Routine PT Evaluation and Treatment [CONS] Routine Respiratory Care Assess and Treatment [CONS] Routine 05/02/17 21:54 Mirtazapine [Remeron] 15 mg PO BEDTIME PRN oxyCODONE 5 mg PO Q4H PRN 05/02/17 21:57 LORazepam [Ativan] 2 mg IVPUSH Q4H PRN hydrALAZINE [Apresoline] 10 mg IVPUSH Q4H PRN 05/02/17 22:00 Magnesium Rep Pharmacy to Dose [Pharmacy to Dose - Magnesium Replacement] 1 dose .XX ASDIRECTED Potassium Rep Pharmacy to Dose [Pharmacy to Dose - Potassium Replacement] 1 dose .XX ASDIRECTED Warfarin Pharmacy to Dose [Pharmacy to Dose - Warfarin] 1 dose .XX ASDIRECTED 05/02/17 23:00 Dextrose 5%-0.9% NaCl [Dextrose 5%-Normal Saline] 1,000 ml IV ASDIRECTED 05/02/17 Dinner Regular Diet [DIET] 05/03/17 06:00 Albuterol [Proventil Neb Soln] 2.5 mg INH TIDRT 05/03/17 07:15 Dronabinol [Marinol] 2.5 mg PO TIDAC 05/03/17 09:00 Calcium Carbonate/Vitamin D3 [Calcium Carbonate/Vitamin D 1500 MG-200 Unit] 1 tab PO TID Cholecalciferol (Vitamin D3) [Vitamin D3] 1,000 units PO DAILY Tamsulosin [Flomax] 0.4 mg PO DAILY 05/03/17 10:00 Patient's Own Medication [Ptom] 0 each PO ACLUNCH 05/03/17 12:00 Digoxin [Lanoxin] 125 mcg PO DAILY@1200 05/03/17 18:00 Warfarin [Coumadin] 5 mg PO DAILY@1800 05/03/17 21:00 Multivitamins,Therapeutic [Thera] 1 each PO BEDTIME Thiamine [Vitamin B-1] 100 mg PO BEDTIME 05/04/17 05:11 BASIC METABOLIC PANEL,BMP [CHEM] AM CBC WITH AUTO DIFF [HEME] AM MAGNESIUM [CHEM] AM 05/05/17 05:11 BASIC METABOLIC PANEL,BMP [CHEM] AM CBC WITH AUTO DIFF [HEME] AM MAGNESIUM [CHEM] AM 05/06/17 05:11 BASIC METABOLIC PANEL,BMP [CHEM] AM MAGNESIUM [CHEM] AM - Plan Plan:: Assessment/Plan: Acute: Failure To Thrive - Severe Emaciated with BMI 17 - Has Stage IV Prostate Cancer - Has not been eating or drinking - He lives with family in [place] - Increased Remeron to 15 mg po QHS - Marinol 2.5 mg po TID before meals Generalized Weakness - 2/2 Diffuse Muscle Atrophy/Wasting, Pancytopenia, Active Malignancy and Also Poor Oral Intake - Dietary consult to optimize nutritional intake - TFT and Vit D Level - PT/OT - Fall Precautions Protein Wasting State - Poor intake and Stage IV Prostate CA - Albumin is 2.2 - Dietary consult to improve protein level Hypotension - 2/2 Volume Depletion and Poor fluid intake - Currently hydration; already received - Hold BP Meds Dehydration - Urine spec gravity is 1.020 (Moderate) - Cr is 1.5 with GFR of 45 - Currently IV Hydration Lung CA Stage 1 - Just started Radiation Therapy - On oral chemotherapy Subtherapeutic INR - INR 1.74 - Resume Warfarin home dose - Augment with Lovenox Sub Q Thrombocytopenia - Platelet of 50K - Will monitor End of Life Care - Meets Hospice/Pallative Care - SW/CM consult for d/c planning Chronic: Impaired Hearing and Vision HTN A-Fib on Digoxin, HR is controlled Heart Failure with Reduced EF of 15-20% 09/17/2016 Cardiomyopathy S/p AICD Placement COPD Valvular Heart Disease Pancytopenia 2/2 Malignancy and Chemotherapy Drugs Hx/o Lung CA S/p Right Lung Lobectomy in 2005 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 Patient understood he is declining progressively. However he doesn't want to go to a long-term. His progressive decline has been discussed with his primary care doctor at the clinic. He was given prescription orders for medical bed, chairs, and bedside commode for home use. Unfortunately, his current insurance would not cover these medical supplies because he hasn't been formally evaluated physically by his primary care according to his [id number]. Hospice home care has been offered to the patient but he is not receptive at this point. Family wants to bring him home after patient improves clinically.
[2017-05-03] MEDS ORDERED: Enzalutamide [Xtandi] 40 MG CAPSULE PO SCH (10:00)
[2017-05-03] MEDS ORDERED: Digoxin 125 MCG Tab PO SCH (12:00)
--- NOTE | 2017-05-03 12:17 | PCM.SN ---
- Free Text/Narrative Note: Met up with his daughter in law this am. She re-assured me, has the manpower to take care Bon at home. Patient's medical bed, bed side commode are now ready. He still needs roberto lift and gait belt. Informed daughter -in-law, patient did not do well with PT this morning. He needed 2 person to get him up and attempted to ambulate him. Hospital bed: Patient has COPD and HF with Reduced EF of 15-20% so he would need HOB elevated at 45 degrees or higher. He would also need frequent repositioning to prevent skin breakdown and or alleviate pain. He is to resume his Home Health Services with home safety eval. His PCP, Anyi Tran will follow him outpatient. Again, patient is not receptive to end of life care at this time,
[2017-05-03 12:22] VITALS: BP 85/61
--- NOTE | 2017-05-03 12:41 | PCM.DCSUM1 ---
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 He was admitted for Failure to Thrive. - Discharge Data Discharge Date: 05/03/17 Discharge Disposition: Home, Self-Care 01 Condition: Good - Discharge Diagnosis/Problem(s) (1) Failure to thrive SNOMED Code(s): 37779028 ICD Code: [id number] - Status: Acute Qualifiers: Failure to thrive age range: in adult Qualified Code(s): R62.7 - Adult failure to thrive (2) Malnutrition compromising bodily function SNOMED Code(s): 4196805 ICD Code: E46 - UNSPECIFIED PROTEIN-CALORIE MALNUTRITION Status: Acute (3) Hypotension, chronic SNOMED Code(s): 63427087 ICD Code: I95.89 - OTHER HYPOTENSION Status: Chronic (4) Dehydration SNOMED Code(s): 17620201 ICD Code: E86.0 - DEHYDRATION Status: Acute (5) Lung malignancy SNOMED Code(s): 655255904 ICD Code: C34.90 - MALIGNANT NEOPLASM OF UNSP PART OF UNSP BRONCHUS OR LUNG Status: Acute Qualifiers: Laterality: unspecified laterality Lung location: unspecified part of lung Qualified Code(s): C34.90 - Malignant neoplasm of unspecified part of unspecified bronchus or lung (6) Pancytopenia due to antineoplastic chemotherapy SNOMED Code(s): 669508380748985 ICD Code: D61.810 - ANTINEOPLASTIC CHEMOTHERAPY INDUCED PANCYTOPENIA; T45.1X5A - ADVERSE EFFECT OF ANTINEOPLASTIC AND IMMUNOSUP DRUGS, INIT Status: Acute (7) Generalized muscle weakness SNOMED Code(s): 79703536 ICD Code: M62.81 - MUSCLE WEAKNESS (GENERALIZED) Status: Acute (8) Has end of life care coordination worker SNOMED Code(s): 103876583 ICD Code: BXW1991 - Status: Acute - Patient Summary/Data Operative Procedure(s) Performed: None Complications: None Consults: Consultations 05/02/17 21:53 Consult to Case Management [CONS] Routine Consult to Cap [place]izer [CONS] Routine Consult to Spiritual Care [CONS] Routine OT Evaluation and Treatment [CONS] Routine PT Evaluation and Treatment [CONS] Routine Respiratory Care Assess and Treatment [CONS] Routine Recommended Follow-up Testing/Procedures: INR Saturday Hospital Course: Patient was primarily admitted for failure to thrive. He was provided supportive care and no overnight or acute issues reported. This morning, his [id number] expressed readiness to take him back home. So far, he had gotten his hospital bed and bedside commode. His hospital course was uncomplicated. He is essentially the same. Again we offered hospice care at this point, patient still refused. Patient will be discharged to resume home health services to include home safety eval. His [id number] will be provided a gait belt to help with his gait and to move them around. She still in the process or will be in the process of obtaining a Monty lift for home use. Patient's PCP has been called and updated regarding discharge care plan. - Patient Instructions Diet: Usual Diet as Tolerated Activity: As Tolerated Driving: Do Not Drive Showering/Bathing: May Shower, No Tub Bathing/Swimming Notify Provider of: Fever, Increased Pain, Swelling and Redness, Nausea and/or Vomiting Other/Special Instructions: - Please resume all home medications. - INR check Saturday for Warfarin Therapy. - Call your primary care doctor right after discharge, if you have any questions or concerns - Discharge Plan Prescriptions/Med Rec: Dronabinol [Marinol] 2.5 mg PO TIDAC #90 cap Home Medications: Home Meds Calcium Carbonate/Vitamin D3 [Calcium 600 + D Tablet] 1 tab PO TID 05/07/15 [ History] Cholecalciferol (Vitamin D3) [Vitamin D3] 1,000 unit PO DAILY 05/07/15 [History] Fluticasone/Vilanterol [Breo Ellipta 200-25 Mcg INH] 1 puff INH DAILY 05/07/15 [ History] Tamsulosin HCl [Flomax] 0.4 mg PO DAILY #30 cap.er.24h 05/09/15 [Rx] Albuterol Sulfate 2.5 mg INH TID 06/09/16 [History] Enzalutamide [Xtandi] 160 mg PO ACLUNCH 09/16/16 [History] Warfarin [Coumadin] 5 mg PO PCDINNER 09/16/16 [History] Furosemide [Lasix] 20 mg PO DAILY #30 tablet 09/20/16 [Rx] Albuterol Sulfate [Proair Hfa] 8.5 gm IH Q4H PRN 05/02/17 [History] Digoxin [Lanoxin] 125 mcg PO DAILY@0900 05/02/17 [History] oxyCODONE 5 mg PO Q4H PRN 05/02/17 [History] Dronabinol [Marinol] 2.5 mg PO TIDAC #90 cap 05/03/17 [Rx] Mirtazapine 15 mg PO BEDTIME PRN #30 05/03/17 [Rx] Patient Handouts: Failure to Thrive, Adult, [id number] Referrals: Hugo,GALILEA Mathew [Primary Care Provider] - (Follow-up as needed with Anyi Arias.) - Discharge Summary/Plan Comment DC Time >30 min.: Yes (45 Mins) Discharge Summary/Plan Comment: Discharge to Home - General Info Date of Service: 05/03/17 Admission Dx/Problem (Free Text: Failure To Thrive Subjective Update: Follow Up Functional Status: Reports: Pain Controlled, Tolerating Diet, Ambulating, Urinating - Review of Systems General: Reports: No Symptoms, Weakness, Fatigue, Malaise. Denies: Fever, Chills HEENT: Reports: No Symptoms Pulmonary: Reports: Shortness of Breath. Denies: Cough Cardiovascular: Denies: Chest Pain, Dyspnea on Exertion, Edema, Lightheadedness Gastrointestinal: Reports: Decreased Appetite. Denies: Abdominal Pain, Nausea, Vomiting Genitourinary: Reports: No Symptoms Musculoskeletal: Reports: No Symptoms Skin: Denies: Cyanosis Neurological: Reports: Difficulty Walking, Weakness, Gait Disturbance. Denies: Confusion Psychiatric: Denies: Depression, Anxiety, Agitation, Hallucinations Systems Review Comment: No significant overnight or acute issues. He is essentially the same since last night. He has no new complaints. - Patient Data Vitals - Most Recent: Last Vital Signs Temp 36.8 C 05/03/17 12:11 Pulse 92 05/03/17 12:11 Resp 18 05/03/17 12:11 BP 85/61 L 05/03/17 12:11 Pulse Ox 93 L 05/03/17 12:11 Weight - Most Recent: 50.077 kg I&O - Last 24 hours: Intake & Output 05/02/17 05/03/17 05/03/17 22:59 06:59 14:59 Intake Total 524 160 Output Total 200 Balance 324 160 Lab Results - Last 24 hrs: Laboratory Results - last 24 hr 05/03/17 05/03/17 05/03/17 Range/Units 05:56 05:56 05:56 WBC 2.00 L* (4.23-9.07) K/mm3 RBC 2.95 L (4.63-6.08) M/mm3 Hgb 9.5 L (13.7-17.5) gm/L Hct 28.8 L (40.1-51.0) % MCV 97.6 H (79.0-92.2) fl MCH 32.2 (25.7-32.2) pg MCHC 33.0 (32.2-35.5) g/dl RDW Std Deviation 57.9 H (35.1-43.9) fL Plt Count 54 L (163-337) K/mm3 MPV 9.8 (9.4-12.3) fl Neut % (Auto) 65.0 (34.0-67.9) % Lymph % (Auto) 20.0 L (21.8-53.1) % [place] % (Auto) 11.5 (5.3-12.2) % Eos % (Auto) 2.0 (0.8-7.0) Baso % (Auto) 0.5 (0.1-1.2) % Neut # (Auto) 1.30 L (1.78-5.38) K/mm3 Lymph # (Auto) 0.40 L (1.32-3.57) K/mm3 [place] # (Auto) 0.23 L (0.30-0.82) K/mm3 Eos # (Auto) 0.04 (0.04-0.54) K/mm3 Baso # (Auto) 0.01 (0.01-0.08) K/mm3 Manual Slide Review Abnormal smear PT 17.5 H (8.0-13.0) SECONDS INR 1.56 Sodium 140 (136-145) mEq/L Potassium 3.9 (3.5-5.1) mEq/L Chloride 108 H (98-107) mEq/L Carbon Dioxide 26 (21-32) mEq/L Anion Gap 9.9 (5-15) BUN 41 H (7-18) mg/dL Creatinine 1.4 H (0.7-1.3) mg/dL Est Cr Clr Drug Dosing 28.81 mL/min Estimated GFR (MDRD) 49 (>60) mL/min BUN/Creatinine Ratio 29.3 H (14-18) Glucose 81 L (83-115) mg/dL Calcium 7.9 L (8.5-10.1) mg/dL Magnesium 2.4 (1.8-2.4) mg/dl Free T4 0.99 (0.76-1.46) ng/dL TSH 3rd Generation 5.266 H (0.358-3.74) uIU/mL Med Orders - Current: Current Medications Acetaminophen (Tylenol) 650 mg PO Q4H PRN PRN Reason: Pain (Mild 1-3)/fever Hydrocodone Bitart/Acetaminophen ([place] 325-5 Mg) 1 tab PO Q4H PRN PRN Reason: Pain (moderate 4-6) Albuterol (Proventil Neb Soln) 2.5 mg INH TIDRT [facility] Last Admin: 05/03/17 07:38 Dose: 2.5 mg Albuterol/Ipratropium (Duoneb 3.0-0.5 Mg/3 Ml) 3 ml NEB Q4HRRT PRN PRN Reason: Shortness Of Breath/wheezing Bisacodyl (Dulcolax) 5 mg PO DAILY PRN PRN Reason: Constipation Calcium Carbonate (Calcium Carbonate/Vitamin D 1500 Mg-200 Unit) 1 tab PO TID [facility] Last Admin: 05/03/17 08:49 Dose: 1 tab Cholecalciferol (Vitamin D3) 1,000 units PO DAILY [facility] Last Admin: 05/03/17 08:49 Dose: 1,000 units Digoxin (Lanoxin) 125 mcg PO DAILY@1200 RERE Docusate Sodium (Colace) 100 mg PO BID PRN PRN Reason: Constipation Dronabinol (Marinol) 2.5 mg PO TIDAC [facility] Last Admin: 05/03/17 11:24 Dose: 2.5 mg Hydralazine HCl (Apresoline) 10 mg IVPUSH Q4H PRN PRN Reason: Hypertension Hydromorphone HCl (Dilaudid) 0.25 mg IVPUSH Q2H PRN PRN Reason: Pain (severe 7-10) Promethazine HCl 12.5 mg/ (Sodium Chloride) 50.5 mls @ 100 mls/hr IV Q6H PRN PRN Reason: Nausea/Vomiting Dextrose/Sodium Chloride (Dextrose 5%-Normal Saline) 1,000 mls @ 45 mls/hr IV ASDIRECTED [facility] Last Admin: 05/03/17 00:38 Dose: 45 mls/hr Lorazepam (Ativan) 0.25 mg IV Q6H PRN PRN Reason: Anxiety Lorazepam (Ativan) 2 mg IVPUSH Q4H PRN PRN Reason: Seizures Magnesium Sulfate (Pharmacy To Dose - Magnesium Replacement) 1 dose .XX ASDIRECTED [facility] Mirtazapine (Remeron) 15 mg PO BEDTIME PRN PRN Reason: Insomnia Multivitamins (Thera) 1 each PO BEDTIME [facility] Ondansetron HCl (Zofran) 4 mg IV Q6H PRN PRN Reason: Nausea/Vomiting Oxycodone HCl (Oxycodone) 5 mg PO Q4H PRN PRN Reason: Pain Enzalutamide [Xtandi (] 40 Mg Capsule) 0 each PO ACLUNCH [facility] Polyethylene Glycol (Miralax) 17 gm PO DAILY PRN PRN Reason: Constipation Potassium Chloride (Pharmacy To Dose - Potassium Replacement) 1 dose .XX ASDIRECTED [facility] Senna/Docusate Sodium (Senna Plus) 1 tab PO BID PRN PRN Reason: Constipation Sodium Chloride (Saline Flush) 10 ml FLUSH ASDIRECTED PRN PRN Reason: Keep Vein Open Last Admin: 05/02/17 17:57 Dose: 10 ml Tamsulosin HCl (Flomax) 0.4 mg PO DAILY [facility] Last Admin: 05/03/17 08:49 Dose: 0.4 mg Temazepam (Restoril) 7.5 mg PO BEDTIME PRN PRN Reason: Sleep Last Admin: 05/03/17 08:49 Dose: 7.5 mg Thiamine HCl (Vitamin B-1) 100 mg PO BEDTIME [facility] Warfarin Sodium (Coumadin) 5 mg PO DAILY@1800 [facility] Warfarin Sodium (Pharmacy To Dose - Warfarin) 1 dose .XX ASDIRECTED [facility] Discontinued Medications Dronabinol (Marinol) 2.5 mg PO TID [facility] Last Admin: 05/03/17 10:06 Dose: Not Given Sodium Chloride (Normal Saline) 250 mls @ 999 mls/hr IV ONETIME ONE Stop: 05/02/17 17:47 Last Admin: 05/02/17 17:57 Dose: 999 mls/hr Sodium Chloride (Normal Saline) 250 mls @ 999 mls/hr IV ONETIME ONE Stop: 05/02/17 19:01 Last Admin: 05/02/17 18:48 Dose: 999 mls/hr Thiamine HCl 200 mg/ Sodium (Chloride) 102 mls @ 50 mls/hr IV ONETIME ONE Stop: 05/03/17 00:01 Last Admin: 05/03/17 00:38 Dose: 50 mls/hr Multivitamins (Thera) 1 each PO DAILY ONE Stop: 05/02/17 21:59 Last Admin: 05/03/17 00:39 Dose: 1 each Non-Formulary Medication (Fluticasone/Vilanterol) 1 puff INH DAILY [facility] - Exam General: Reports: Alert, Oriented, Cooperative, Other (Severely malnourished/ Emaciated) HEENT: Reports: Pupils Equal, Pupils Reactive, EOMI, Other (Eyes are sunken). Denies: Mucous Membr. Moist/[place] Lungs: Reports: Normal Respiratory Effort, Decreased Breath Sounds Cardiovascular: Reports: Irregular Rhythm, Murmurs GI/Abdominal Exam: Normal Bowel Sounds, Soft, Non-Tender, No Organomegaly, No Distention, No Abnormal Bruit, No Mass (Male) Exam: Deferred Rectal (Males) Exam: Deferred Back Exam: Reports: Normal Inspection, Decreased Range of Motion Extremities: Normal Inspection, Normal Range of Motion, Non-Tender, No Pedal Edema, Normal Capillary Refill, Other (Diffuse Muscle Atrophy and Muscle Wasting ) Skin: Reports: Warm, Dry, Intact Neurological: Reports: No New Focal Deficit. Denies: Normal Gait Psy/Mental Status: Reports: Alert, Normal Mood. Denies: Normal Affect *Q Meaningful Use (DIS) - VTE *Q VTE Criteria *Q: - Stroke *Q Stroke Criteria *Q: - AMI *Q AMI Criteria *Q:
[2017-05-03] MEDS ORDERED: Warfarin 5 MG Tab PO SCH (18:00)
[2017-05-03] MEDS ORDERED: Multivitamins,Therapeutic Tab PO SCH (21:00)
[2017-05-03] MEDS ORDERED: Thiamine 100 MG Tab PO SCH (21:00)
== END 2017-05-03 16:10 | disposition home or self-care (01) | DRG 640 ==
LOC: JD.ED 16:32 → JD.MS 21:39
PROVIDERS: ADMIT Nurse Practitioner Family; ATTEND Internal Medicine
DX: R62.7 Adult failure to thrive (principal); D61.810 Antineoplastic chemotherapy induced pancytopenia; E46 Unspecified protein-calorie malnutrition; I42.9 Cardiomyopathy, unspecified; I38 Endocarditis, valve unspecified; Z85.118 Personal history of other malignant neoplasm of bronchus and lung; C79.51 Secondary malignant neoplasm of bone; C34.90 Malignant neoplasm of unspecified part of unspecified bronchus or lung; M62.81 Muscle weakness (generalized); I95.89 Other hypotension; R79.1 Abnormal coagulation profile; E86.0 Dehydration; D69.6 Thrombocytopenia, unspecified; I48.91 Unspecified atrial fibrillation; I11.0 Hypertensive heart disease with heart failure; I50.9 Heart failure, unspecified; Z95.810 Presence of automatic (implantable) cardiac defibrillator; J44.9 Chronic obstructive pulmonary disease, unspecified; C61 Malignant neoplasm of prostate; Z87.891 Personal history of nicotine dependence; Z66 Do not resuscitate; W19.XXXA Unspecified fall, initial encounter; H91.90 Unspecified hearing loss, unspecified ear; H54.7 Unspecified visual loss; Z79.01 Long term (current) use of anticoagulants; Z79.899 Other long term (current) drug therapy; Z51.5 Encounter for palliative care
CPT/HCPCS: 36415; 71010; 80053; 81001; 82306; 85025; 85610; 86140; J7040 ×2; J7050; 80048; 83735; 84439; 84443; 94640-76; 94664; 96360; 97167-GO; 97530-GO; 99284; 99285-25; A9270-GY; J3411; J7030; J7042; P9612; Q0167